=== PATIENT | female | born 1945 | race Caucasian/White ===

== ENCOUNTER 2016-10-12 14:12 | Outpatient (CLI) | payer MEDICARE, OTHER | END 2016-10-12 14:13 | LOC: LAB 14:12 | PROVIDERS: ATTEND Surgery Vascular Surgery | DX: I73.9 Peripheral vascular disease, unspecified (principal) | CPT/HCPCS: 36415; 85610 ==

== ENCOUNTER 2016-11-16 13:40 | Outpatient (CLI) | payer MEDICARE, OTHER | END 2016-11-16 13:42 | LOC: LAB 13:40 | PROVIDERS: ATTEND Surgery Vascular Surgery | DX: Z51.81 Encounter for therapeutic drug level monitoring (principal); Z79.01 Long term (current) use of anticoagulants; I73.9 Peripheral vascular disease, unspecified | CPT/HCPCS: 36415; 85610 ==

== ENCOUNTER 2016-12-21 11:34 | Outpatient (CLI) | payer MEDICARE, OTHER | END 2016-12-21 11:35 | LOC: LAB 11:34 | PROVIDERS: ATTEND Surgery Vascular Surgery | DX: Z51.81 Encounter for therapeutic drug level monitoring (principal); Z79.01 Long term (current) use of anticoagulants; I73.9 Peripheral vascular disease, unspecified | CPT/HCPCS: 36415; 85610 ==

== ENCOUNTER 2017-01-25 13:53 | Outpatient (CLI) | payer MEDICARE, OTHER | END 2017-01-25 13:54 | LOC: LAB 13:53 | PROVIDERS: ATTEND Surgery Vascular Surgery | DX: I73.9 Peripheral vascular disease, unspecified (principal); Z79.01 Long term (current) use of anticoagulants | CPT/HCPCS: 36415; 85610 ==

== ENCOUNTER 2017-03-01 15:13 | Outpatient (CLI) | payer MEDICARE, OTHER | END 2017-03-01 15:14 | LOC: LAB 15:13 | PROVIDERS: ATTEND Surgery Vascular Surgery | DX: I73.9 Peripheral vascular disease, unspecified (principal) | CPT/HCPCS: 36415; 85610 ==

== ENCOUNTER 2017-04-05 12:59 | Outpatient (CLI) | payer MEDICARE, OTHER | END 2017-04-05 13:00 | LOC: LAB 12:59 | PROVIDERS: ATTEND Surgery Vascular Surgery | DX: I73.9 Peripheral vascular disease, unspecified (principal) | CPT/HCPCS: 36415; 85610 ==

== ENCOUNTER 2017-04-24 11:37 | Outpatient (CLI) | payer MEDICARE, OTHER | END 2017-04-24 11:40 | LOC: LAB 11:37 | PROVIDERS: ATTEND Surgery Vascular Surgery | DX: I73.9 Peripheral vascular disease, unspecified (principal) | CPT/HCPCS: 36415; 85610 ==

== ENCOUNTER 2017-06-05 11:44 | Outpatient (CLI) | payer MEDICARE, OTHER | END 2017-06-05 11:45 | LOC: LAB 11:44 | PROVIDERS: ATTEND Surgery Vascular Surgery | DX: I73.9 Peripheral vascular disease, unspecified (principal) | CPT/HCPCS: 36415; 85610 ==

== ENCOUNTER 2017-07-12 11:28 | Outpatient (CLI) | payer MEDICARE, OTHER | END 2017-07-12 11:30 | LOC: LAB 11:28 | PROVIDERS: ATTEND Surgery Vascular Surgery | DX: I73.9 Peripheral vascular disease, unspecified (principal); Z79.01 Long term (current) use of anticoagulants | CPT/HCPCS: 36415; 85610 ==

== ENCOUNTER 2017-08-23 10:46 | Outpatient (CLI) | payer MEDICARE, OTHER | END 2017-08-23 10:47 | LOC: LAB 10:46 | PROVIDERS: ATTEND Surgery Vascular Surgery | DX: I73.9 Peripheral vascular disease, unspecified (principal) | CPT/HCPCS: 36415; 85610 ==

== ENCOUNTER 2017-10-11 11:52 | Outpatient (CLI) | payer MEDICARE, OTHER | END 2017-10-11 11:53 | LOC: LAB 11:52 | PROVIDERS: ATTEND Surgery Vascular Surgery | DX: I73.9 Peripheral vascular disease, unspecified (principal); Z51.81 Encounter for therapeutic drug level monitoring | CPT/HCPCS: 36415; 85610 ==

== ENCOUNTER 2017-11-22 15:21 | Outpatient (CLI) | payer MEDICARE, OTHER | END 2017-11-22 15:22 | LOC: LAB 15:21 | PROVIDERS: ATTEND Surgery Vascular Surgery | DX: I73.9 Peripheral vascular disease, unspecified (principal); Z79.899 Other long term (current) drug therapy | CPT/HCPCS: 36415; 85610 ==

== ENCOUNTER 2018-01-03 12:45 | Outpatient (CLI) | payer MEDICARE, OTHER | END 2018-01-03 12:46 | LOC: LAB 12:45 | PROVIDERS: ATTEND Surgery Vascular Surgery | DX: I73.9 Peripheral vascular disease, unspecified (principal); Z79.01 Long term (current) use of anticoagulants | CPT/HCPCS: 36415; 85610 ==

== ENCOUNTER 2018-02-14 13:27 | Outpatient (CLI) | payer MEDICARE, OTHER | END 2018-02-14 13:30 | LOC: LAB 13:27 | PROVIDERS: ATTEND Surgery Vascular Surgery | DX: I73.9 Peripheral vascular disease, unspecified (principal); Z79.01 Long term (current) use of anticoagulants | CPT/HCPCS: 36415; 85610 ==

== ENCOUNTER 2018-03-28 12:45 | Outpatient (CLI) | payer MEDICARE, OTHER | END 2018-03-28 12:46 | LOC: LAB 12:45 | PROVIDERS: ATTEND Surgery Vascular Surgery | DX: Z79.01 Long term (current) use of anticoagulants (principal); I73.9 Peripheral vascular disease, unspecified | CPT/HCPCS: 36415; 85610 ==

== ENCOUNTER 2018-05-10 11:19 | Outpatient (CLI) | payer MEDICARE, OTHER | END 2018-05-10 11:20 | LOC: LAB 11:19 | PROVIDERS: ATTEND Surgery Vascular Surgery | DX: I73.9 Peripheral vascular disease, unspecified (principal); Z79.01 Long term (current) use of anticoagulants | CPT/HCPCS: 36415; 85610 ==

== ENCOUNTER 2018-05-30 13:44 | Outpatient (CLI) | payer MEDICARE, OTHER | END 2018-05-30 13:45 | LOC: LAB 13:44 | PROVIDERS: ATTEND Surgery Vascular Surgery | DX: I73.9 Peripheral vascular disease, unspecified (principal); Z79.01 Long term (current) use of anticoagulants | CPT/HCPCS: 36415; 85610 ==

== ENCOUNTER 2019-03-20 16:11 | Outpatient (CLI) | payer MEDICARE, OTHER | END 2019-03-20 16:13 | LOC: LAB 16:11 | PROVIDERS: ATTEND Surgery Vascular Surgery | DX: I73.9 Peripheral vascular disease, unspecified (principal) | CPT/HCPCS: 36415; 85610 ==

== ENCOUNTER 2019-04-18 11:57 | Outpatient (CLI) | payer MEDICARE, OTHER | END 2019-04-18 12:00 | LOC: LAB 11:57 | PROVIDERS: ATTEND Surgery Vascular Surgery | DX: Z51.81 Encounter for therapeutic drug level monitoring (principal); Z79.01 Long term (current) use of anticoagulants | CPT/HCPCS: 36415; 85610 ==

== ENCOUNTER 2019-05-17 15:01 | Outpatient (CLI) | payer MEDICARE, OTHER | END 2019-05-17 15:04 | LOC: LAB 15:01 | PROVIDERS: ATTEND Surgery Vascular Surgery | DX: I73.9 Peripheral vascular disease, unspecified (principal); Z79.899 Other long term (current) drug therapy | CPT/HCPCS: 36415; 85610 ==

== ENCOUNTER 2019-06-19 16:16 | Outpatient (CLI) | payer MEDICARE, OTHER | END 2019-06-19 16:21 | disposition home or self-care (01) | LOC: LAB 16:16 | PROVIDERS: ATTEND Surgery Vascular Surgery | DX: I73.9 Peripheral vascular disease, unspecified (principal); Z79.01 Long term (current) use of anticoagulants | CPT/HCPCS: 36415; 85610 ==

== ENCOUNTER 2019-07-25 16:53 | Outpatient (CLI) | payer MEDICARE, OTHER | END 2019-07-25 16:58 | LOC: LAB 16:53 | PROVIDERS: ATTEND Surgery Vascular Surgery | DX: Z51.81 Encounter for therapeutic drug level monitoring (principal); I73.9 Peripheral vascular disease, unspecified; Z79.01 Long term (current) use of anticoagulants | CPT/HCPCS: 36415; 85610 ==

== ENCOUNTER 2019-07-29 18:14 | Emergency (ER) | payer MEDICARE, OTHER ==
[2019-07-29] MEDS ORDERED: CEPHALEXIN 250 MG CAPSULE PO ONE (18:39)
--- NOTE | 2019-07-29 18:42 | ED Physician Documentation ---
Skin Rash - HISTORIAN Historian: patient - HPI Chief Complaint: Skin Rash (Infection to finger) Additional Information: 74 year old female presents with c/o redness, swelling and tenderness to the 2nd digit of the right hand. states that he stuck a needle in it but nothing came out. Patient thinks it started 3 days ago; states that she is constantly picking at it. Onset: days ago Timing: still present Duration: persistent since Location: other (right 2nd digit) Quality: painful Identified Cause?: No (picking) When Did Symptoms Start: 07/26/19 Where: home Context: Medication Exposure: none Context: Food Exposure: none - ROS CONST: none CVS/RESP: none EYES/ENT: none GI/: none MS/SKIN/LYMPH: none NEURO/PSYCH: none - PAST HX Past History: hypertension, other (depression, HLD) Surgeries/Procedures: Yes Immunizations: tetanus, UTD Allergies/Adverse Reactions: Allergies Allergy/AdvReac Type Severity Reaction Status Date / Time aspirin Allergy Verified 07/29/19 18:45 codeine Allergy Verified 07/29/19 18:45 hydromorphone [From Dilaudid] Allergy Verified 07/29/19 18:45 Home Medications: Ambulatory Orders Medication Instructions Recorded Cephalexin [Keflex] 500 mg PO Q6H #40 capsule 07/29/19 Mupirocin 2% Oint. [Bactroban] 1 appl TP TID #1 tube 07/29/19 - SOCIAL HX Smoking History: quit greater than 1 year Alcohol Use: none Drug Use: none - FAMILY HX Family History: none - VITAL SIGNS Vital Signs: Vital Signs Temp Pulse Resp BP Pulse Ox 97.0 F L 61 20 167/81 98 07/29/19 18:50 07/29/19 18:50 07/29/19 18:50 07/29/19 18:50 07/29/19 18:50 - REVIEWED ASSESSMENTS Nursing Assessment Reviewed: Yes Vitals Reviewed: Yes ED Results Lab/Radiology - Orders Orders: ED Orders Category Date Time Status Cephalexin [Keflex] Med 07/29/19 18:39 Discontinued 500 mg PO NOW ONE Skin Rash Physical Exam - EXAM General Appearance: no acute distress, alert Skin: warm,dry, other (paronchyia to the right 2nd finger; white area surrounded by redness;erythema) Location: other (right hand 2nd digit) Symptoms: warmth, tenderness, swelling Extremities: non-tender Respiratory: breath sounds normal CVS: heart sounds nml Neuro/Psych: oriented x3, CN's nml as tested, motor nml, sensation nml Discharge Clincal Impression: Paronychia Referrals: Primary Doctor,No [Primary Care Provider] - 2 Days Additional Instructions: Take antibiotic as directed (Cephalexin 500 mg by mouth every 6 hours for 10 days) Wash hands regularly with antibacterial soap and apply mupirocin to the affected finger 3 times a day for 10 days Follow up with PCP this week for re-evaluation Condition: Good Disposition: 01 HOME, SELF-CARE Decision to Admit: NO Decision Time: 20:00
[2019-07-29 18:48] VITALS: BP 167/81
== END 2019-07-29 18:50 | disposition home or self-care (01) ==
LOC: ED 18:14
DX: L03.011 Cellulitis of right finger (principal)
CPT/HCPCS: 99282; 99283

== ENCOUNTER 2019-08-29 16:17 | Outpatient (CLI) | payer MEDICARE, OTHER | END 2019-08-29 16:22 | LOC: LAB 16:17 | PROVIDERS: ATTEND Surgery Vascular Surgery | DX: Z51.81 Encounter for therapeutic drug level monitoring (principal); Z79.01 Long term (current) use of anticoagulants; I73.9 Peripheral vascular disease, unspecified | CPT/HCPCS: 36415; 85610 ==